=== PATIENT | female | born 1970 | race Caucasian/White ===

== ENCOUNTER 2024-09-25 01:01 | Emergency (ER) | payer SELFPAY ==
[~2024-09-25] VITALS: Ht 167.6 cm; Wt 148.3 kg
--- NOTE | 2024-09-25 01:38 | ERN ---
ED Note History of Present Illness Stated Complaint: C/O SWELLING TO VARICOSE VEIN Chief Complaint: Other Problems Time Seen by MD: 01:06 Dictation: PATIENT IS A 53-YEAR-OLD FEMALE COMING IN WITH PAIN TO HER RIGHT THIGH WITH ERYTHEMA SWELLING TO THE THIGH. 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 SHE STATES SHE HAS ALREADY BEEN EVALUATED BY A VASCULAR SURGEON AND, IS WEIGHING HER OPTIONS. NO FEVER NO CHILLS NO NAUSEA VOMITING. DISTAL NEUROVASCULAR CMS INTACT. Allergies: Coded Allergies: No Known Allergies (Unverified Allergy, Unknown, 09/25/24) Past Medical History Past Medical History: No Pertinent History Surgical History: None History: Not Applicable RN Note Reviewed/Agreed w/PFSH: Yes Review of System Dictation Constitutional: Negative for fever,chills, and weight loss Eyes: Negative for injury, pain,redness, and discharge ENT: Negative for injury,pain or swelling Cardiovascular: Negative for chest pain, palpitations, and edema Respiratory: Negative for shortness of breath, cough, and wheezing, Abdomen/GI: Negative for abdominal pain, nausea, vomiting, diarrhea, and constipation Back: Negative for injury and pain : Negative for injury, bleeding and discharge MS/Extremity: Negative for injury and deformity right thigh area of redness and pain Skin: Negative for rash, and discoloration Neuro: Negative for headache, weakness, numbness, tingling, and seizure Psych: Negative for suicide ideation, homicidal ideation, and hallucinations Initial Vital Sign VS Vital Signs Date Time Temp Pulse Resp B/P (MAP) Pulse Ox O2 Delivery O2 Flow Rate FiO2 09/25/24 01:03 98.1 82 20 136/77 100 Room Air Physical Exam Dictation General: awake, alert, NAD extremely obese with a BMI of 53 Head/Face: Normocephalic, atraumatic Eyes: PERRL, EOMI, vision at baseline ENT: oral cavity clear, TMs clear, no signs of infection Neck: Trachea midline, supple, no nuchal rigidity Cardiovascular: RRR, normal S1/S2, No MRGs, no JVD Respiratory: CTAB, no respiratory distress, No rales or wheezes Abdomen: Soft, non-tender, non-distended, normal bowel sounds, no guarding or rebound. Skin: Warm, dry, normal turgor, no rash MS/Extremity: Pulses equal, no cyanosis, neurovascular intact, FROM right thigh medially 2 x 2 in area of erythema extending into medial most area with a small prominent vein. Neuro: COAx4, GCS 15, strength 5/5, CN 2-12 intact, normal cerebellar exam, normal gait, Psych: Normal behavior, mood, and affect normal Extremities-trace edema without any palpable cords, Homans sign is negative Results (Laboratory/Radiology) Labs Reviewed?: Yes ED Course ED Course Orders Procedure Category Date Status Time Clindamycin 150mg Cap PHA 09/25/24 Complete (Cleocin 150mg Cap 02:00 Us Venous Doppler US 09/25/24 Taken Unilateral 01:35 Current Medications Medications (Trade) Dose Ordered Sig/[place] Route PRN Reason Start Time Stop Time Status Last Admin Dose Admin Clindamycin HCl (Cleocin 150mg Cap) 600 mg ONCE ONCE PO 09/25/24 02:00 09/25/24 02:01 DC 09/25/24 02:14 Vital Signs Date Time Temp Pulse Resp B/P (MAP) Pulse Ox O2 Delivery O2 Flow Rate FiO2 09/25/24 01:03 98.1 82 20 136/77 100 Room Air We will perform diagnostic labs, advanced imaging and administer medications according to the patient's complaint. Once the results are available, will review and personally interpreted the labs to rule out any acute life- threatening emergency the trach require immediate intervention and treatment. I will then re-evaluate the patient after treatment and diagnostic exams have return to determine whether the patient requires any further testing, can safely be discharged home or need further admission to hospital for additional treatment and evaluation. Venous Doppler ultrasound study of right lower extremity showed a superficial thrombus in the saphenous vein measuring about 5 cm in length by 2 cm transfer sleep. I had a very long discussion with the patient and family member about the test results and what it means with a superficial saphenous vein thrombosis. I presented the options of conservative treatment with nonsteroidals heating pad increased ambulation 2nd option of in addition anticoagulation therapy for 45 days to 2 months--due to the risk of DVT considering her body habitus. She is willing to get an opinion from phototypesetter operator on need for anticoagulation therapy and Dr. Lema-office address and telephone number were given to the patient. Medical Decision Making MDM MDM: Differential diagnosis: Superficial thrombophlebitis, superficial thrombosis, DVT, cellulitis Rationale: Tests considered and ordered secondary to shared decision making include: Previous outside records reviewed: Old ER visits. Risk of complication and/or morbidity or mortality of patient management: None Medications-Per medication reconciliation Need for hospitalization: Patient does not meet criteria for hospitalization. Need for emergency major/minor surgery: No There are no social concerns with this patient. Prescription drug management Prescriptions will include symptomatic care Patient's prior external medical records from other ER visits were reviewed by me as indicated. Prior testing and results from previous visits were reviewed. Prior tests were taken into account with medical decision making and resource utilization, independent historian/historians were used to obtain complete medical history. I independently interpreted the test that were performed, results were reviewed by me and considered findings on radiology if ordered. Medical management and examination interpretation discussions were had by me with other qualified healthcare professionals as indicated for the patient's care. Problem List Problem List: (1) Thrombosis of right saphenous vein (2) Thrombophlebitis of right saphenous vein (3) Morbid obesity with BMI of 50.0-59.9, adult DX & DISP Disposition: Discharge Departure Impression: Primary Impression: Thrombophlebitis of right saphenous vein Additional Impression: Thrombosis of right saphenous vein Condition: Stable Additional Instructions: Patient and the caregiver have been informed of all the diagnostic tests and the imaging conducted during the today's visit to the emergency room and has verbalized understanding of the results I have personally reviewed and interpreted all diagnostic exams performed here in the ER today as well as the vital signs documented by the nursing staff. The patient is now being discharged to home and should follow up with the primary care physician or the specialist as directed by the ER staff. Follow-up with primary care provider in 1 to 2 days. Take medications as directed here in the emergency room. Okay to continue home medications unless otherwise discussed during your visit in the emergency room today. Return to your nearest emergency room if symptoms worsen or if there is no improvement. Call 911 if you need immediate assistance. Take Tylenol or Motrin [id number] as needed and if no contraindications are present. Increase oral hydration. A wound culture or urine culture was ordered here in the emergency room department please follow-up with primary care provider and advise them to get repeat ports from our facility. If you had any Alon wrap/splints that were applied here, please do not remove them until you see your primary care or specialty. Long discussion with patient about treatment options for superficial saphenous vein thrombosis done. As the thrombus is 5 cm sagittally and 2 cm transversely, patient's BMI of 52.8, I was concerned about increasing risk of propagation or deep venous thrombosis in future and recommended that she must see phototypesetter operator and get an opinion on need for anticoagulation therapy or symptomatic treatment. She verbalized full understanding. For now ibuprofen and nonsteroidals and heating pack for relief. Referrals: NONE (PCP) MOY FOX NP Sep 25, 2024 01:38 VIRI MARINELLI MD Sep 25, 2024 04:19
[2024-09-25] MEDS: CLINDAMYCIN 150 MG CAP PO ONE (02:14)
[2024-09-25 04:30] VITALS: BP 144/76; PULSE 78; RESP 16; TEMP 98; O2SAT 100
--- NOTE | 2024-09-25 08:16 | HMCIMG ---
US VENOUS DOPPLER UNILATERAL HISTORY: Right thigh pain COMPARISON: None TECHNIQUE: Right lower extremity venous Doppler ultrasound study was performed. FINDINGS: The right common femoral, femoral, popliteal, and posterior tibial veins are visualized. Normal flow with augmentation and compressibilities are demonstrated. Thrombus is seen in the right greater saphenous vein consistent with superficial thrombophlebitis. IMPRESSION: 1. Thrombus is seen in the right greater saphenous vein consistent with superficial thrombophlebitis.
== END 2024-09-25 04:39 | disposition home or self-care (01) ==
LOC: EDH 01:01
DX: I82.811 Embolism and thrombosis of superficial veins of right lower extremity (principal); E66.01 Morbid (severe) obesity due to excess calories; Z68.43 Body mass index [BMI] 50.0-59.9, adult
CPT/HCPCS: 93971; 99284

== ENCOUNTER 2025-03-10 12:07 | Emergency (ER) | payer OTHER ==
[~2025-03-10] VITALS: Ht 167.6 cm; Wt 149.7 kg
--- NOTE | 2025-03-10 12:35 | ERN ---
ED Note History of Present Illness Stated Complaint: RIGHT LEG SWELLING Chief Complaint: Lower Extremity Pain/Injury Time Seen by MD: 12:10 Dictation: PATIENT IS A 54-YEAR-OLD FEMALE COMING IN TODAY WITH COMPLAINTS OF POSTERIOR RIGHT KNEE PAIN SWELLING TENDERNESS SHE HAS HAD FOR APPROXIMATELY TWO WEEKS. NO FEVER NO CHILLS NO ERYTHEMA. SHE HAS DISCOLORATION TO THE DISTAL RIGHT LEG CONSISTENT WITH VENOUS INSUFFICIENCY. SHE STATES SHE HAS ALREADY SEEN HER DOCTOR WHO REFERRED HER TO A VEIN SPECIALIST AND ADVISED HER OF WHAT PROCEDURES HE COULD DO FOR THE LEG. HOWEVER SHE HAS NOT HAD THE SWELLING AND TENDERNESS A EVALUATED BY A DOCTOR. SHE STATES SHE HAS A HISTORY OF DVT. DISTAL NEUROVASCULAR AND CMS GROSSLY INTACT TO RIGHT LEG. Allergies: Coded Allergies: No Known Allergies (Unverified Allergy, Unknown, 09/25/24) Home Meds Active Scripts Ibuprofen (Ibuprofen 800 mg Tab) 800 Mg Tab, 800 MG PO Q8H PRN for fever or pain, #30 TAB 0 Refills Prov:MOY FOX SIGNALS COLLECTION TECHNICIAN 03/10/25 Past Medical History Past Medical History: No Pertinent History Surgical History: None History: Not Applicable RN Note Reviewed/Agreed w/PFSH: Yes Review of System Dictation CONSTITUTIONAL: NEGATIVE EXCEPT FOR HPI HEAD/FACE: NEGATIVE EXCEPT FOR HPI EENT: NEGATIVE EXCEPT FOR HPI RESPIRATORY: NEGATIVE EXCEPT FOR HPI GASTROINTESTINAL/ABDOMINAL: NEGATIVE EXCEPT FOR HPI GENITOURINARY: NEGATIVE EXCEPT FOR HPI MUSCULOSKELETAL: NEGATIVE EXCEPT FOR HPI POSTERIOR TIBIAL SWELLING TENDERNESS INTEGUMENTARY: NEGATIVE EXCEPT FOR HPI CHRONIC SKIN CHANGES DISTAL RIGHT LEG NEUROLOGICAL/PSYCH: NEGATIVE EXCEPT FOR HPI HEMATOLOGIC/LYMPHATIC: NEGATIVE EXCEPT FOR HPI ALL SYSTEMS NEGATIVE, EXCEPT NOTED ABOVE. 13 POINT REVIEW OF SYSTEMS ASSESSED AND ALL NEGATIVE EXCEPT FOR ABOVE. Initial Vital Sign VS Vital Signs Date Time Temp Pulse Resp B/P (MAP) Pulse Ox O2 Delivery O2 Flow Rate FiO2 03/10/25 12:08 98.2 72 18 142/67 100 Room Air 03/10/25 12:42 0 21 Physical Exam Dictation VITAL SIGNS REVIEWED GENERAL APPEARANCE: ALERT, ORIENTED X 3, NO ACUTE DISTRESS, WELL DEVELOPED, NOURISHED. MORBIDLY OBESE HEAD AND FACE: NON-TRAUMATIC. EYES: PERRL, PINK CONJUNCTIVAS, EYELID NO TRAUMA, ANTERIOR CHAMBER WITH ARCUS SENILIS. EARS: PINNAS INTACT AND NO SIGNS OF TRAUMA OR ERYTHEMA EAR CANALS CLEAR AND NO DISCHARGE TM NO ERYTHEMA NOSE: NO DISCHARGE, NO BLEEDING. OROPHARYNX: MOUTH NORMAL, TONGUE PINK, PHARYNX CLEAR,NO ERYTHEMA, TONSILS NO EXUDATES, NO ABSCESSES NOTED, MUCOUS MEMBRANE MOIST NECK: SUPPLE, NON-TENDER, NO THYROMEGALY, NO MASSES, NO JVD, NO BRUITS BREAST:DEFERRED CHEST:NO TENDERNESS, NO CREPITUS, NO PARADOXICAL MOVEMENT, NO RETRACTIONS LUNGS:CLEAR, WELL-VENTILATED, SYMMETRIC, NO RALES, NO WHEEZING, NO RHONCHI, NO STRIDOR, GOOD BREATH SOUNDS BILATERALLY HEART: REGULAR RATE, REGULAR RHYTHM, NO MURMUR, NO GALLOPS VASCULAR: NO PERIPHERAL EDEMA, ABDOMEN: SOFT, POSITIVE BOWEL SOUNDS, NONDISTENDED, NO GUARDING, NONTENDER, NO REBOUND, NO MASSES NO HEPATOMEGALY, NO SPLENOMEGALY, NO PRATT'S SIGN, NO HERNIAS. RECTAL: DEFERRED GENITAL: DEFERRED NEUROLOGICAL: NORMAL SPEECH, MOTOR FUNCTION INTACT, SENSORY FUNCTION INTACT MUSCULOSKELETAL: NECK NONTENDER, FULL RANGE OF MOTION, BACK NONTENDER, FULL RANGE OF MOTION, EXTREMITIES: POSTERIOR POPLITEAL TUBAL SWELLING TENDERNESS DISTAL NEUROVASCULAR CMS INTACT CHRONIC SKIN CHANGES CONSISTENT WITH VENOUS INSUFFICIENCY NOTED. SKIN: COLOR PINK, DRY, NO TURGOR, NO RASH, NO LACERATIONS, NO ABRASIONS, NO CONTUSIONS. LYMPHATIC: DEFERRED Results (Laboratory/Radiology) Laboratory/Radiology KNEE X-RAY DEMONSTRATES DJD ULTRASOUND DEMONSTRATES BRANCH OF FEMORAL VEIN PARTIALLY OCCLUDED FROM THIGH DOWN TO FOOT IS NEGATIVE FOR DEEP VENOUS THROMBOSIS Labs Reviewed?: Yes ED Course ED Course Orders Procedure Category Date Status Time Us Venous Doppler US 03/10/25 Resulted Unilateral 12:16 Knee 3vws Rt RAD 03/10/25 Resulted 12:16 Vital Signs Date Time Temp Pulse Resp B/P (MAP) Pulse Ox O2 Delivery O2 Flow Rate FiO2 03/10/25 15:27 98.2 72 14 117/56 98 Room Air* 0 21 03/10/25 14:26 97.0 68 16 113/57 100 Room Air* 0 03/10/25 12:42 97.5 84 16 115/63 97 Room Air* 0 03/10/25 12:08 98.2 72 18 142/67 100 Room Air 1405/SPOKE WITH PATIENT AT LENGTH REGARDING CLINICAL FINDINGS. SHE WILL BE REFERRED TO DR. KHUSHBOO RUEDA FOR DJD OF THE KNEE SMALL BURSITIS Medical Decision Making MDM DECISION-MAKING BASED ON PAIN MANAGEMENT ULTRASOUND OF RIGHT LEG TO RULE OUT DVT ULTRASOUND OF NEED TO RULE OUT FRACTURE VERSUS ARTHRITIC CHANGES PATIENT DISCHARGED HOME WITH IBUPROFEN TOLD TO FOLLOW UP WITH DR. KHUSHBOO FLORENCE KER DX & DISP Disposition: Discharge Departure Impression: Primary Impression: Thrombosis of right saphenous vein Additional Impressions: Venous insufficiency of right lower extremity, Right knee DJD Condition: Stable Scripts Ibuprofen (Ibuprofen 800 mg Tab) 800 Mg Tab 800 MG PO Q8H PRN for fever or pain, #30 TAB 0 Refills Prov: MOY FOX NP 03/10/25 Additional Instructions: FOLLOW-UP WITH PRIMARY CARE PROVIDER IN 1 TO 2 DAYS. TAKE MEDICATIONS DIRECTED HERE IN THE EMERGENCY ROOM. OKAY TO CONTINUE HOME MEDICATIONS UNLESS OTHERWISE DISCUSSED DURING YOUR VISIT IN THE EMERGENCY ROOM TODAY. RETURN TO YOUR NEAREST EMERGENCY ROOM IF SYMPTOMS WORSEN OR IF THERE IS NO IMPROVEMENT. CALL 911 IF YOU NEED IMMEDIATE ASSISTANCE. TAKE TYLENOL OR MOTRIN [id number] NEEDED AND IF NO CONTRAINDICATIONS ARE PRESENT. INCREASE OR AL HYDRATION. A WOUND CULTURE OR URINE CULTURE WAS ORDERED HERE IN THE EMERGENCY ROOM DEPARTMENT PLEASE FOLLOW-UP WITH PRIMARY CARE PROVIDER AND ADVISE THEM TO GET REPEAT PORTS FROM OUR FACILITY. IF YOU HAD ANY INDIO WRAP/SPLINTS THAT WERE APPLIED HERE, PLEASE DO NOT REMOVE THEM UNTIL YOU SEE YOUR PRIMARY CARE OR SPECIALTY. TAKE IBUPROFEN NEEDED FOR PAIN. DIET AND ACTIVITY TOLERATED. FOLLOW UP WITH DR. KHUSHBOO RUEDA FOR PAIN MANAGEMENT OF YOUR Referrals: SELF,REFERRAL (PCP) KHUSHBOO RUEDA MD Time of Disposition: 14:09 I have reviewed the case, and I agree with, Diagnosis and Plan MOY FOX NP Mar 10, 2025 12:35 MARTIN FULLER DO Mar 11, 2025 07:15
[2025-03-10] MEDS ORDERED: IBUP-2077 PO (14:10)
--- NOTE | 2025-03-10 14:23 | HMCIMG ---
EXAM: CR right Knee, 3 View. CLINICAL HISTORY: RIGHT KNEE POSTERIOR SWELLING TENDERNESS COMPARISON: None provided. FINDINGS: There is medial compartment predominant moderate tricompartmental right knee joint osteoarthritis. There is no displaced fracture or evidence of periostitis. There is a small knee joint effusion. Soft tissues are radiographically within normal limits. IMPRESSION: 1. Moderate tricompartmental right knee osteoarthritis, most severe in the medial compartment, with small joint effusion. /[place]
--- NOTE | 2025-03-10 14:43 | HMCIMG ---
EXAM: US for Deep Venous Thrombosis, right Lower Extremity. CLINICAL HISTORY: Leg Pain and Swelling TECHNIQUE: Real-time ultrasound scan of the veins of the right lower extremity with color Doppler flow, spectral waveform analysis, and compression. COMPARISON: Study dated 09/25/2024. FINDINGS: DEEP VEINS: The common femoral, superficial femoral, and popliteal veins are echolucent and compressible. There is normal color Doppler flow throughout. The visualized calf veins appear patent. The GSV shows partial compression and partial flow suggestive of partial thrombosis. SOFT TISSUES: There is a 4.3 x 0.9 x 2.9 cm well-defined cystic lesion in the suprapatellar region consistent with suprapatellar bursitis. IMPRESSION: 1. Partial thrombosis of the right great saphenous vein. /[place]
[2025-03-10 15:27] VITALS: BP 117/56; PULSE 72; RESP 14; TEMP 98.2; O2SAT 98
== END 2025-03-10 16:36 | disposition home or self-care (01) ==
LOC: EDH 12:07
DX: I82.811 Embolism and thrombosis of superficial veins of right lower extremity (principal); I87.2 Venous insufficiency (chronic) (peripheral); M17.11 Unilateral primary osteoarthritis, right knee
CPT/HCPCS: 73562; 93971; 99284